=== PATIENT | female | born 2000 | race Two or more races ===

== ENCOUNTER 2025-05-28 09:58 | Outpatient (AMB) | payer MEDICAID, SELFPAY ==
[2025-05-28 10:11] VITALS: BP 106/66; PULSE 80; RESP 16; TEMP 36.6; O2SAT 97; BMI 28.6
--- NOTE | 2025-05-28 10:11 | OBCLNT_ITS ---
Vital Signs 05/28/25 10:11 Height 1.68 m Height Method Stated Weight 80.513 kg Weight Measurement Method Standing Scale BMI 28.6 BP 106/66 Blood Pressure Source Automatic Cuff Blood Pressure Location Left Upper Arm Position Sitting Respiration 16 Pulse 80 Pulse Source Monitor Temp 97.8 F Temp Source Oral Pulse Oximetry (%) 97 Oxygen Delivery Method Room Air Allergies/Home Meds Allergies & Medications Allergies No Known Allergies Allergy (Verified 06/26/25 13:39) Medication Reconciliation vit no.95-ferrous fumarate 28 mg-folic acid 800 mcg tablet ( Multivitamins) 1 tab PO QDAY 06/16/25 [History Confirmed 06/26/25] Intake Visit Data Collection New Patient or Established: New Patient (never been to [facility]) Reason for Visit:: OB INITIAL CARE Seen by Clinical Staff ONLY (RN/MA): No Research Contracts Supervisor Required: Yes Research Contracts Supervisor's name/title: MARK MICHELLE Do You Feel Safe at Home: Yes Authorities Contacted: N/A PCP or OBGYN visit in last 3 months: Yes Hx Now: Yes Are you currently on any form of Control: No Last menstrual period: 11/09/24 Pain Present Currently: No Pain Scale Used: Teran-Balderrama/Numerical Pain scale:: 0 Smoking Status Smoking Status: Never smoker Questionnaires Covid-19 Vaccine Questionnaire Has patient been vacinated for Covid-19 Have you been vacinated for Covid-19: Yes PHQ-9 PHQ-2 Over the last 2 weeks, how often have you been bothered by any of the following problems? 1. Little interest or pleasure in doing things: not at all 2. Feeling down, depressed, or hopeless: not at all Total score: 0 PHQ-9 3. Trouble falling or staying asleep, or sleeping too much: Not at all 4. Feeling tired or having little energy: Not at all 5. Poor appetite or overeating: Not at all 6. Feeling bad about yourself - or that you are a failure or have let yourself or your family down: Not at all 7. Trouble concentrating on things, such as reading the newspaper or watching television: Not at all 8. Moving or speaking so slowly that other people could have noticed? - Or the opposite - being so fidgety or restless that you have been moving around a lot more than usual: not at all 9. Thoughts that you would be better off or of hurting yourself in some way: Not at all Total score: 0 Source: Developed by Drs. Davis Washington, Haydee Porter, Dennis Gill and colleagues, with an educational omar from [employer]. Depression screen completed yes Social History Living Situation History Marital Status: Lives With: Family Housing: House Tobacco History Smoking Status: Never smoker Second Hand Smoke Exposure: No Alcohol History Alcohol Intake: Never Domestic Abuse History Do You Feel Safe at Home: Yes OB Initial Visit OB Flowsheet OB Flowsheet Initial Weight: Not Recorded Date -?-?-?-?-?-?-?-?-?-?-?-?- EGA Weight BP Alb Glu CTX Pres Fundal ht FHR Mov Dilation Station Effacement Hx Notes Visit Note 05/28/25 -?-?-?-?-?-?-?-?-?-?-?-?- 32w 5d 80.513 kg 106/66 absent 145 - with history of one prior section - Estimated due date: 07/18/2025 - Previous due to prolonged pre gnancy and cord entanglement - Current uncomplicated, heart rate 145 bpm (normal range) Delivery Options: - Discussed vaginal after () vs. repeat section - Informed patient our hospital does not allow - Advised to request referral for a [facility] or [facility] if desired Menstrual History Menstrual reliability: approximate (month known) Flow: normal Menstrual regularity: regular Monthly: Yes Age at menarche: 12 On control pills at conception: No Associated symptoms (LMP): Reports nausea OB History : 3 Para: 1 Hx Total # of Abortions (Spontaneous & Elective): 1 # of Living Children: 1 Delivery History 1st : Child's name: JOSHUA date: 07/09[birth year] sex: female Gestational age at delivery (weeks): 41 Delivery type: History of depression before or after : No Infection History & Risk Evaluation History of STDs: syphilis Patient or partner has history of Genital Herpes: No Genetic Screening & History Genetic Screening/Teratology Counseling - Includes patient, baby's father, or anyone in either family with: 1. Patient's age 35 years or older as of estimated date of delivery: No 2. Thalassemia (Turkmen, Bangladeshi, Mediterranean, or Background); MCV less than 80: No 3. Neural Tube Defect (Meningomyelocele, Spina Bifida, or Anencephaly): No 4. Congenital Heart Defect: No 5. Down Syndrome: No 6. Niko-Sachs (Ashkenazi Religion, Cajun, Hungarian East Timorese): No 7. Radha Disease (Ashkenazi Religion): No 8. Familial Dysautonomia (Ashkenazi Religion): No 9. Sickle Cell Disease or Trait (): No 10. Hemophilia or other blood disorders: No 11. Muscular Dystrophy: No 12. Cystic Fibrosis: No 13. Desoto's Chorea: No 14. Mental Retardation/Autism: No 15. Other inherited genetic or chromosomal disorder: No 16. Maternal Metabolic Disorder (EG,TYPE 1 Diabetes, PKU): No 17. Patient or baby's father had a child with defects not listed above: No 18. Recurrent loss or a stillbirth: No 19. Medications (including supplements, vitamins, herbs or otc drugs)/illicit/recreational drugs/alcohol since last menstrual period: No 20. Any other: No Infection History 1. Live with someone with TB or exposed to TB: No 2. Rash or viral illness since last menstrual period: No 3. Hepatitis B,C: No 4. History of STD: syphilis Other (see comments) Source: [employer] Review of Systems Gastrointestinal Gastrointestinal: Reports nausea Office Procedures OB Clinic LOC & Office Proc's Nursing/Assessment Patient Status: Initial/New Patient OB Clinic Nursing Assessment: Medication Reconciliation, Update PMH in EMR and Vital Signs OB Clinic Coordination of Care: Complex Care and Chronic Disease 1-5, Consent,records obtained, informed consent, Education Simp Pt/Fam, 1 Ins Authorization, Lab and Imaging orders, Results/Orders obtained and Staff clarify orders Special Needs: Heart tones New Patient Charge New Patient Point Assignment: [id number] New Patient Point Charge: LABORER LIVESTOCK Level 4 (9800-9919) Assessment & Plan Diagnosis / Problem List (1) Maternal care for low transverse scar from previous delivery: Status: Acute (2) Supervision of high risk , unspecified, third trimester: Status: Acute
== END 2025-05-28 10:34 | disposition home or self-care (01) ==
LOC: HODSOBC 09:58
PROVIDERS: Supervising Provider Obstetrics & Gynecology; Visit Provider Obstetrics & Gynecology
DX: O09.293 Supervision of pregnancy with other poor reproductive or obstetric history, third trimester (principal); O34.211 Maternal care for low transverse scar from previous cesarean delivery; Z3A.32 32 weeks gestation of pregnancy; Z87.59 Personal history of other complications of pregnancy, childbirth and the puerperium
CPT/HCPCS: 99204; G0463

== ENCOUNTER 2025-06-12 15:24 | Outpatient (AMB) | payer MEDICAID, SELFPAY ==
[2025-06-12 15:31] VITALS: BP 110/72; PULSE 85; RESP 16; TEMP 36.2; O2SAT 97; BMI 29.0
--- NOTE | 2025-06-12 15:31 | OBCLNT_ITS ---
Vital Signs 06/12/25 15:31 Height 1.68 m Height Method Stated Weight 81.873 kg Weight Measurement Method Standing Scale BMI 29.0 BP 110/72 Blood Pressure Source Automatic Cuff Blood Pressure Location Left Upper Arm Position Sitting Respiration 16 Pulse 85 Pulse Source Monitor Temp 97.1 F Temp Source Oral Pulse Oximetry (%) 97 Oxygen Delivery Method Room Air Allergies/Home Meds Allergies & Medications Allergies No Known Allergies Allergy (Verified 06/26/25 13:39) Medication Reconciliation vit no.95-ferrous fumarate 28 mg-folic acid 800 mcg tablet ( Multivitamins) 1 tab PO QDAY 06/16/25 [History Confirmed 06/26/25] Intake Visit Data Collection New Patient or Established: Established Patient (seen at [facility] within 3 years) Reason for Visit:: CARE Seen by Clinical Staff ONLY (RN/MA): No Director Of Leadership Development Required: Yes Director Of Leadership Development's name/title: MARK MICHELLE Do You Feel Safe at Home: Yes Authorities Contacted: N/A PCP or OBGYN visit in last 3 months: Yes Hx Now: Yes Are you currently on any form of Control: No Pain Present Currently: No Pain Scale Used: Teran-Balderrama/Numerical Pain scale:: 0 Smoking Status Smoking Status: Never smoker Questionnaires Covid-19 Vaccine Questionnaire Has patient been vacinated for Covid-19 Have you been vacinated for Covid-19: Yes PHQ-9 PHQ-2 Over the last 2 weeks, how often have you been bothered by any of the following problems? 1. Little interest or pleasure in doing things: not at all 2. Feeling down, depressed, or hopeless: not at all Total score: 0 PHQ-9 3. Trouble falling or staying asleep, or sleeping too much: Not at all 4. Feeling tired or having little energy: Not at all 5. Poor appetite or overeating: Not at all 6. Feeling bad about yourself - or that you are a failure or have let yourself or your family down: Not at all 7. Trouble concentrating on things, such as reading the newspaper or watching television: Not at all 8. Moving or speaking so slowly that other people could have noticed? - Or the opposite - being so fidgety or restless that you have been moving around a lot more than usual: not at all 9. Thoughts that you would be better off or of hurting yourself in some way: Not at all Total score: 0 Source: Developed by Drs. Davis Washington, Haydee Porter, Dennis Gill and colleagues, with an educational omar from [employer]. Depression screen completed yes Social History Living Situation History Lives With: Family Housing: House Tobacco History Smoking Status: Never smoker Second Hand Smoke Exposure: No Alcohol History Alcohol Intake: Never Domestic Abuse History Do You Feel Safe at Home: Yes Care OB Visit Log OB Flowsheet Initial Weight: Not Recorded Date -?-?-?-?-?-?-?-?-?-?-?-?- EGA Weight BP Alb Glu CTX Pres Fundal ht FHR Mov Dilation Station Effacement Hx Notes Visit Note 05/28/25 -?-?-?-?-?-?-?-?-?-?-?-?- 32w 5d 80.513 kg 106/66 absent 145 - with history of one prior ce sarean section - Estimated due date: 07/18/2025 - Previous due to prolonged pre gnancy and cord entanglement - Current uncomplicated, heart rate 145 bpm (normal range) [place] Options: - Discussed vaginal after () vs. repeat section - Informed patient our hospital does not allow - Advised to request referral for a [facility] or [facility] if desired 06/12/25 -?-?-?-?-?-?-?-?-?-?-?-?- 34w 6d 81.873 kg 110/72 occasional 152 at 35 weeks gestation presenting for routine visit. Patient reports feeling pressure, which is noted as normal. heart rate is 152 bpm, which is within normal limits. Group B Streptococcus (GBS) screening swab was performed. Patient has a history of difficulty with anesthesia during previous section, reporting higher than expected sensation. Planned section for July 01, one week prior to the July 08 due date. Plan - Group B Streptococcus (GBS) culture sw ab performed - Follow-up appointment scheduled for ne xt week - tentatively scheduled for , awaiting confirmation - Patient advised to mention previous an esthesia difficulties to anesthesiologist for appropriate management during upcoming PILI Calculator Estimated Delivery Date Method Current WG Current Estimate 07/18/25 LMP (Certain) 36w 6d Office Procedures OB Clinic LOC & Office Proc's Nursing/Assessment Patient Status: Established Patient OB Clinic Nursing Assessment: Medication Reconciliation, Update PMH in EMR and Vital Signs OB Clinic Coordination of Care: Complex Care and Chronic Disease 1-5, Consent,records obtained, informed consent, Education Simp Pt/Fam, Lab and Imaging orders, Results/Orders obtained and Staff clarify orders Special Needs: Heart tones Miscellaneous Interventions: Culture Specimen Collection Established Patient Charge Established Patient Point Assignment: 150 Established Patient Point Charge: EP Level 4 (120-155) Assessment & Plan Diagnosis / Problem List (1) Maternal care for low transverse scar from previous delivery: Status: Acute (2) Supervision of high risk , unspecified, third trimester: Status: Acute Plan Problem List - , 35 weeks gestation - Group B Streptococcus screening - History of section - 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 Patient reports feeling pressure, which is noted as normal. heart rate is 152 bpm, which is within normal limits. Group B Streptococcus (GBS) screening swab was performed. Patient has a history of difficulty with anesthesia during previous section, reporting higher than expected sensation. Planned section for July 01, one week prior to the July 08 due date. Plan - Group B Streptococcus (GBS) culture swab performed - Follow-up appointment scheduled for next week - tentatively scheduled for July 01, awaiting confirmation - Patient advised to mention previous anesthesia difficulties to anesthesiologist for appropriate management during upcoming 1. Progress Reviewed gestational age, growth, and heart rate. Planned frequent visits (every 2 weeks until 36 weeks, then weekly). 2. Instructed patient to monitor movements and report decreases immediately. 3. Testing Counseled on routine third-trimester labs per guidelines. Discussed potential need for ultrasound or monitoring based on risk factors. 4. Preeclampsia Precaution Educated on preeclampsia signs: severe headache, vision changes, right upper quadrant pain, sudden swelling. Advised urgent reporting of symptoms and discussed blood pressure monitoring if high risk. 5. Labor Precautions Reviewed labor signs: regular contractions, pelvic pressure, back pain, bleeding, or fluid leakage. Instructed to seek immediate care for these symptoms. 6. Lifestyle and Delivery Preparation Reinforced vitamins, nutrition, and safe activity. Discussed plan, pain management, and . Advised on labor preparation (e.g., hospital bag) and expectations. 7. Psychosocial Support Assessed emotional well-being and offered resources for mental health or parenting support.
== END 2025-06-12 15:47 | disposition home or self-care (01) ==
LOC: HODSOBC 15:24
PROVIDERS: Supervising Provider Obstetrics & Gynecology; Visit Provider Obstetrics & Gynecology
DX: O09.293 Supervision of pregnancy with other poor reproductive or obstetric history, third trimester (principal); O34.211 Maternal care for low transverse scar from previous cesarean delivery; Z3A.34 34 weeks gestation of pregnancy; Z36.85 Encounter for antenatal screening for Streptococcus B
CPT/HCPCS: 99214; G0463

== ENCOUNTER 2025-06-16 18:31 | Observation (INO) | payer MEDICAID, SELFPAY ==
[2025-06-16] VITALS (25 sets, daily range): BP systolic 110; BP diastolic 66; PULSE 73–102; RESP 16–98; TEMP 37.3; O2SAT 97–99; BMI 30.4
[2025-06-16 19:31] LABS: Collection Type, Urine Voided
[2025-06-16 19:51] LABS: Bacteria,Urine Rare; Bilirubin,Urine Negative (Negative); Blood,Urine Negative (Negative); Clarity,Urine Clear (Clear/Hazy); Color,Urine Lt-Yellow (Lt Yel-Yel); Glucose, Urine Negative (Negative); Ketones,Urine Negative (Negative); Leukocyte Esterase,Urine Negative (Negative); Nitrite,Urine Negative (Negative); PH,Urine 5.5 (5.0-7.0); Protein,Urine Negative (Neg - Trace); RBC,Urine 2 /hpf (0-3); Specific Gravity,Urine 1.020 (1.001-1.035); Squamous Epithelial Cell,Urine 4 /hpf (0-5); Urobilinogen,Urine Negative mg/dL (0.0-1.0); WBC,Urine 3 /hpf (0-5)
[2025-06-16] MEDS: TERBUTALINE SULF INJ 1 MG/ML VIAL 0.25 MG SC (20:00)
== END 2025-06-16 20:48 | disposition home or self-care (01) ==
PROVIDERS: Admitting Provider Obstetrics & Gynecology; PCP Family Medicine; Visit Provider Obstetrics & Gynecology
DX: O47.03 False labor before 37 completed weeks of gestation, third trimester (principal); Z3A.35 35 weeks gestation of pregnancy
CPT/HCPCS: 59025; 59899; 81001; 96372; J3105

== ENCOUNTER 2025-06-19 09:57 | Outpatient (AMB) | payer MEDICAID, SELFPAY ==
--- NOTE | 2025-06-19 10:18 | OBCLNT_ITS ---
Vital Signs 06/19/25 10:19 Height 1.6 m Height Method Measured Weight 82.214 kg Weight Measurement Method Standing Scale BMI 32.1 BP 107/71 Blood Pressure Source Automatic Cuff Blood Pressure Location Right Upper Arm Position Sitting Respiration 17 Pulse 80 Pulse Source Monitor Temp 97.8 F Temp Source Temporal Artery Scan Pulse Oximetry (%) 96 Oxygen Delivery Method Room Air Allergies/Home Meds Allergies & Medications Allergies No Known Allergies Allergy (Verified 06/26/25 13:39) Medication Reconciliation vit no.95-ferrous fumarate 28 mg-folic acid 800 mcg tablet ( Multivitamins) 1 tab PO QDAY 06/16/25 [History Confirmed 06/26/25] Intake Visit Data Collection New Patient or Established: Established Patient (seen at [facility] within 3 years) Reason for Visit:: OBC Consent obtained for Telemed Visit: No Seen by Clinical Staff ONLY (RN/MA): No Jingle Writer Required: Yes Jingle Writer's name/title: CARLOS ALONSO Do You Feel Safe at Home: Yes Authorities Contacted: N/A PCP or OBGYN visit in last 3 months: Yes Date of Last PCP or OBGYN visit: 06/16/25 Hx Now: Yes Are you currently on any form of Control: No Pain Present Currently: Yes Pain scale:: 2 Smoking Status Smoking Status: Never smoker Questionnaires Covid-19 Vaccine Questionnaire Has patient been vacinated for Covid-19 Have you been vacinated for Covid-19: Yes PHQ-9 PHQ-2 Over the last 2 weeks, how often have you been bothered by any of the following problems? 1. Little interest or pleasure in doing things: not at all PHQ-9 8. Moving or speaking so slowly that other people could have noticed? - Or the opposite - being so fidgety or restless that you have been moving around a lot more than usual: not at all Source: Developed by Drs. Davis Washington, Haydee Porter, Dennis Gill and colleagues, with an educational omar from [employer]. Social History Living Situation History Lives With: Family Housing: House Tobacco History Smoking Status: Never smoker Second Hand Smoke Exposure: No Alcohol History Alcohol Intake: Never Domestic Abuse History Do You Feel Safe at Home: Yes Care OB Visit Log OB Flowsheet Initial Weight: Not Recorded Date -?-?-?-?-?-?-?-?-?-?-?-?- EGA Weight BP Alb Glu CTX Pres Fundal ht FHR Mov Dilation Station Effacement Hx Notes Visit Note 05/28/25 -?-?-?-?-?-?-?-?-?-?-?-?- 32w 5d 80.513 kg 106/66 absent 145 - with history of one prior section - Estimated due date: 07/18/2025 - Previous due to prolonged pre gnancy and cord entanglement - Current uncomplicated, heart rate 145 bpm (normal range) Delivery Options: - Discussed vaginal after () vs. repeat section - Informed patient our hospital does not allow - Advised to request referral for a [facility] or [facility] if desired 06/12/25 -?-?-?-?-?-?-?-?-?-?-?-?- 34w 6d 81.873 kg 110/72 occasional 152 at 35 weeks gestation presenting for routine visit. Patient reports feeling pressure, which is noted as normal. heart rate is 152 bpm, which is within normal limits. Group B Streptococcus (GBS) screening swab was performed. Patient has a history of difficulty with anesthesia during previous section, reporting higher than expected sensation. Planned section for July 01, one week prior to the July 08 due date. Plan - Group B Streptococcus (GBS) culture sw ab performed - Follow-up appointment scheduled for ne xt week - tentatively scheduled for , awaiting confirmation - Patient advised to mention previous an esthesia difficulties to anesthesiologist for appropriate management during upcoming 06/19/25 -?-?-?-?-?-?-?-?-?-?-?-?- 35w 6d 82.214 kg 107/71 occasional 155 Patient is a 35-week and 6-day woman presenting for visit. Group B Streptococcus (GBS) screening was negative at the last appointment. A repeat section is scheduled for July 01. heart rate was noted to be 155 bpm, which is within normal range. Patient reports numbness in her first two toes following steroid administration, likely a temporary side effect. She also experienced drowsiness after receiving spinal anesthesia during a previous procedure. Cervix was closed on recent examination, indicating no signs of labor at this time. Plan - Scheduled repeat on - Return for final appointment next week - Patient to meet with anesthesia doctor 2 hours before operation to discuss concerns about previous anesthesia experience - If contractions last more than an hour , patient should come to the hospital - If cervix starts opening, delivery may occur before scheduled date PILI Calculator Estimated Delivery Date Method Current WG Current Estimate 07/18/25 LMP (Certain) 36w 6d Office Procedures OB Clinic LOC & Office Proc's Nursing/Assessment Patient Status: Established Patient OB Clinic Nursing Assessment: Medication Reconciliation, Update PMH in EMR and Vital Signs OB Clinic Coordination of Care: Complex Care and Chronic Disease 1-5, Consent,records obtained, informed consent, Education Simp Pt/Fam and Results/Orders obtained Special Needs: Heart tones Established Patient Charge Established Patient Point Assignment: 110 Established Patient Point Charge: EP Level 3 (80-115) Assessment & Plan Diagnosis / Problem List (1) Maternal care for low transverse scar from previous delivery: Status: Acute (2) Supervision of high risk , unspecified, third trimester: Status: Acute Plan Problem List - , 35 weeks and 6 days gestation - Scheduled repeat section Assessment Patient is a 35-week and 6-day woman presenting for visit. G roup B Streptococcus (GBS) screening was negative at the last appointment. A repeat section is scheduled for July 01. heart rate was noted to be 155 bpm, which is within normal range. Patient reports numbness in her first two toes following steroid administration, likely a temporary side effect. She also experienced drowsiness after receiving spinal anesthesia during a previous procedure. Cervix was closed on recent examination, indicating no signs of labor at this time. Plan - Scheduled repeat on July 01 - Return for final appointment next week - Patient to meet with anesthesia doctor 2 hours before operation to discuss concerns about previous anesthesia experience - If contractions last more than an hour, patient should come to the hospital - If cervix starts opening, delivery may occur before scheduled date 1. Progress Reviewed gestational age, growth, and heart rate. Planned frequent visits (every 2 weeks until 36 weeks, then weekly). 2. Instructed patient to monitor movements and report decreases immediately. 3. Testing Counseled on routine third-trimester labs per guidelines. Discussed potential need for ultrasound or monitoring based on risk factors. 4. Preeclampsia Precaution Educated on preeclampsia signs: severe headache, vision changes, right upper quadrant pain, sudden swelling. Advised urgent reporting of symptoms and discussed blood pressure monitoring if high risk. 5. Labor Precautions Reviewed labor signs: regular contractions, pelvic pressure, back pain, bleeding, or fluid leakage. Instructed to seek immediate care for these symptoms. 6. Lifestyle and Delivery Preparation Reinforced vitamins, nutrition, and safe activity. Discussed plan, pain management, and . Advised on labor preparation (e.g., hospital bag) and expectations. 7. Psychosocial Support Assessed emotional well-being and offered resources for mental health or parenting support.
[2025-06-19 10:19] VITALS: BP 107/71; PULSE 80; RESP 17; TEMP 36.6; O2SAT 96; BMI 32.1
== END 2025-06-19 10:36 | disposition home or self-care (01) ==
PROVIDERS: Supervising Provider Obstetrics & Gynecology; Visit Provider Obstetrics & Gynecology
DX: O09.293 Supervision of pregnancy with other poor reproductive or obstetric history, third trimester (principal); O34.211 Maternal care for low transverse scar from previous cesarean delivery; Z3A.35 35 weeks gestation of pregnancy; Z87.59 Personal history of other complications of pregnancy, childbirth and the puerperium
CPT/HCPCS: 99213; G0463

== ENCOUNTER 2025-06-26 13:30 | Outpatient (AMB) | payer MEDICAID, SELFPAY ==
[2025-06-26 13:38] VITALS: BP 113/71; PULSE 80; RESP 16; TEMP 36.5; O2SAT 97; BMI 32.5
--- NOTE | 2025-06-26 13:38 | OBCLNT_ITS ---
Vital Signs 06/26/25 13:38 Height 1.6 m Height Method Stated Weight 83.234 kg Weight Measurement Method Standing Scale BMI 32.5 BP 113/71 Blood Pressure Source Automatic Cuff Blood Pressure Location Left Upper Arm Position Sitting Respiration 16 Pulse 80 Pulse Source Monitor Temp 97.7 F Temp Source Oral Pulse Oximetry (%) 97 Oxygen Delivery Method Room Air Allergies/Home Meds Allergies & Medications Allergies No Known Allergies Allergy (Verified 06/26/25 13:39) Medication Reconciliation vit no.95-ferrous fumarate 28 mg-folic acid 800 mcg tablet ( Multivitamins) 1 tab PO QDAY 06/16/25 [History Confirmed 06/26/25] Intake Visit Data Collection New Patient or Established: Established Patient (seen at [facility] within 3 years) Reason for Visit:: CARE Seen by Clinical Staff ONLY (RN/MA): No Household Refrigerator Mechanic Required: No Do You Feel Safe at Home: Yes Authorities Contacted: N/A PCP or OBGYN visit in last 3 months: Yes Hx Now: Yes Are you currently on any form of Control: No Pain Present Currently: No Pain Scale Used: Teran-Balderrama/Numerical Pain scale:: 0 Smoking Status Smoking Status: Never smoker Questionnaires Covid-19 Vaccine Questionnaire Has patient been vacinated for Covid-19 Have you been vacinated for Covid-19: Yes PHQ-9 PHQ-2 Over the last 2 weeks, how often have you been bothered by any of the following problems? 1. Little interest or pleasure in doing things: not at all 2. Feeling down, depressed, or hopeless: not at all Total score: 0 PHQ-9 3. Trouble falling or staying asleep, or sleeping too much: Not at all 4. Feeling tired or having little energy: Not at all 5. Poor appetite or overeating: Not at all 6. Feeling bad about yourself - or that you are a failure or have let yourself or your family down: Not at all 7. Trouble concentrating on things, such as reading the newspaper or watching television: Not at all 8. Moving or speaking so slowly that other people could have noticed? - Or the opposite - being so fidgety or restless that you have been moving around a lot more than usual: not at all 9. Thoughts that you would be better off or of hurting yourself in some way : Not at all Total score: 0 Source: Developed by Drs. Davis Washington, Haydee Porter, Dennis Gill and colleagues, with an educational omar from [employer]. Depression screen completed yes Social History Living Situation History Lives With: Family Housing: House Tobacco History Smoking Status: Never smoker Second Hand Smoke Exposure: No Alcohol History Alcohol Intake: Never Domestic Abuse History Do You Feel Safe at Home: Yes Care OB Visit Log OB Flowsheet Initial Weight: Not Recorded Date -?-?-?-?-?-?-?-?-?-?-?-?- EGA Weight BP Alb Glu CTX Pres Fundal ht FHR Mov Dilation Station Effacement Hx Notes Visit Note 05/28/25 -?-?-?-?-?-?-?-?-?-?-?-?- 32w 5d 80.513 kg 106/66 absent 145 - with history of one prior section - Estimated due date: 07/18/2025 - Previous due to prolonged pre gnancy and cord entanglement - Current uncomplicated, heart rate 145 bpm (normal range) Delivery Options: - Discussed vaginal after () vs. repeat section - Informed patient our hospital does not allow - Advised to request referral for a [facility] or [facility] if desired 06/12/25 -?-?-?-?-?-?-?-?-?-?-?-?- 34w 6d 81.873 kg 110/72 occasional 152 at 35 weeks gestation presenting for routine visit. Patient reports feeling pressure, which is noted as normal. heart rate is 152 bpm, which is within normal limits. Group B Streptococcus (GBS) screening swab was performed. Patient has a history of difficulty with anesthesia during previous section, reporting higher than expected sensation. Planned section for July 01, one week prior to the July 08 due date. Plan - Group B Streptococcus (GBS) culture sw ab performed - Follow-up appointment scheduled for ne xt week - tentatively scheduled for Se pt, awaiting confirmation - Patient advised to mention previous an esthesia difficulties to anesthesiologist for appropriate management during upcoming 06/19/25 -?-?-?-?-?-?-?-?-?-?-?-?- 35w 6d 82.214 kg 107/71 occasional 155 Patient is a 35-week and 6-day woman presenting for visit. Group B Streptococcus (GBS) screening was negative at the last appointment. A repeat section is scheduled for July 01. heart rate was noted to be 155 bpm, which is within normal range. Patient reports numbness in her first two toes following steroid administration, likely a temporary side effect. She also experienced drowsiness after receiving spinal anesthesia during a previous procedure. Cervix was closed on recent examination, indicating no signs of labor at this time. Plan - Scheduled repeat on - Return for final appointment next week - Patient to meet with anesthesia doctor 2 hours before operation to discuss concerns about previous anesthesia experience - If contractions last more than an hour , patient should come to the hospital - If cervix starts opening, delivery may occur before scheduled date 06/26/25 -?-?-?-?-?-?-?-?-?-?-?-?- 36w 6d 83.234 kg 113/71 occasional 37 145 +FM No L OF, No VB Scheduled CS 07/04 unknown scar in [place] PILI Calculator Estimated Delivery Date Method Current WG Current Estimate 07/18/25 LMP (Certain) 37w 3d Other Estimates 07/18/25 Ultrasound #1 37w 3d Expected Delivery Route/Plan 24 y/o Previous CS in [place] no Op report 3 years ago for distress Transfer of care Dr Celestin 27 weeks Specific Issue/Plans PNC labs under [facility] 06/15: PNC Documentation from office: B+/Ab negative/RI/RPR NR/HepBSag-/HIV-/CG-/Chlam-/ AFP-/CF testing- Notes Visit Date: 06/26/25 Last Updated by: Pat Bledsoe (OB Clinic)MD Pt is a Occitan-Speaking pt who presents with her and 3 year old for a return OB visit. She started care with Dr Celestin. She had a CS in [place], unknown scar for distress. The interview and exam is conducted with my medical clerk, Maya present. Office Procedures OB Clinic LOC & Office Proc's Nursing/Assessment Patient Status: Established Patient OB Clinic Nursing Assessment: Medication Reconciliation, Update PMH in EMR and Vital Signs OB Clinic Coordination of Care: Complex Care and Chronic Disease 1-5, Consent,records obtained, informed consent, Education Simp Pt/Fam, Lab and Imaging orders, Results/Orders obtained and Staff clarify orders Special Needs: Heart tones Established Patient Charge Established Patient Point Assignment: 135 Established Patient Point Charge: EP Level 4 (120-155) Assessment & Plan Diagnosis / Problem List (1) Maternal care for low transverse scar from previous delivery: Status: Acute (2) : Status: Acute Qualifiers: Weeks of gestation: 37 weeks Qualified Code(s): Z3A.37 - 37 weeks gestation of Plan: Sceduled repeat CS at 38 weeks due to unknown scar in [place]. Verbally consented for procedure, will consent day of surgery with an offical scheduling clerk. All questions were answered.
== END 2025-06-26 14:21 | disposition home or self-care (01) ==
PROVIDERS: Supervising Provider Obstetrics & Gynecology; Visit Provider Obstetrics & Gynecology
DX: O09.293 Supervision of pregnancy with other poor reproductive or obstetric history, third trimester (principal); O34.211 Maternal care for low transverse scar from previous cesarean delivery; Z3A.36 36 weeks gestation of pregnancy
CPT/HCPCS: 99214; G0463

== ENCOUNTER 2025-07-04 05:30 | Inpatient (IN) | payer MEDICAID, SELFPAY ==
[2025-07-04] VITALS (14 sets, daily range): BP systolic 93–114; BP diastolic 55–76; PULSE 50–97; RESP 12–20; TEMP 36.5–36.9; O2SAT 97–99; BMI 30.2
[2025-07-04 06:27] LABS: Basophils # (Auto) 0.0 Thou/mm3 (0.0-0.2); Basophils % (Auto) 0 % (0-2.5); Eosinophils # (Auto) 0.1 Thou/mm3 (0.0-0.5); Eosinophils % (Auto) 0 % (0-10); Hematocrit 36.6 % (36.0-46.0); Hemoglobin 12.4 g/dL (12.0-16.0); Immature Granulocytes Auto 0.05 Thou/mm3 (0.00-0.00); Lymphocytes # (Auto) 2.6 Thou/mm3 (1.0-4.8); Lymphocytes % (Auto) 21 % (10-50); Mean Corpuscular HGB Conc 33.9 g/dl (31.0-37.0); Mean Corpuscular Hemoglobin 29.0 pg (25.0-35.0); Mean Corpuscular Volume 86 fL (80-100); Monocytes # (Auto) 0.9 Thou/mm3 (0.0-0.8); Monocytes % (Auto) 8 % (0-12); Neutrophils # (Auto) 8.5 Thou/mm3 (1.8-7.7); Neutrophils % (Auto) 70 % (37-80); Nucleated Red Blood Cell # 0.00 Thou/mm3 (0.00-0.00); Nucleated Red Blood Cell % 0 /100 WBC (0); Platelet Count 203 Thou/mm3 (140-440); RDW Standard Deviation 41.8 fL (36.4-46.3); Red Blood Count 4.27 Miln/mm3 (4.00-5.20); White Blood Count 12.2 Thou/mm3 (3.6-11.0)
[2025-07-04 07:02] LABS: Syphilis Nonreactive (Nonreactive)
[2025-07-04] MEDS: ONDANSETRON INJ 2 MG/ML INJ 2 ML 4 MG IVP (11:54)
[2025-07-04] MEDS: OXYTOCIN in NS 20 units 20 UNIT/1,000 ML BAG 125 UNIT IV ×2 (14:01→22:29)
[2025-07-04] MEDS: KETOROLAC INJ 30 MG/ML VIAL IVP (15:46)
[2025-07-04 19:42] LABS: Basophils # (Auto) 0.0 Thou/mm3 (0.0-0.2); Basophils % (Auto) 0 % (0-2.5); Eosinophils # (Auto) 0.0 Thou/mm3 (0.0-0.5); Eosinophils % (Auto) 0 % (0-10); Hematocrit 31.1 % (36.0-46.0); Hemoglobin 10.4 g/dL (12.0-16.0); Immature Granulocytes Auto 0.06 Thou/mm3 (0.00-0.00); Lymphocytes # (Auto) 2.4 Thou/mm3 (1.0-4.8); Lymphocytes % (Auto) 17 % (10-50); Mean Corpuscular HGB Conc 33.4 g/dl (31.0-37.0); Mean Corpuscular Hemoglobin 28.8 pg (25.0-35.0); Mean Corpuscular Volume 86 fL (80-100); Monocytes # (Auto) 1.0 Thou/mm3 (0.0-0.8); Monocytes % (Auto) 7 % (0-12); Neutrophils # (Auto) 11.0 Thou/mm3 (1.8-7.7); Neutrophils % (Auto) 76 % (37-80); Nucleated Red Blood Cell # 0.00 Thou/mm3 (0.00-0.00); Nucleated Red Blood Cell % 0 /100 WBC (0); Platelet Count 160 Thou/mm3 (140-440); RDW Standard Deviation 41.5 fL (36.4-46.3); Red Blood Count 3.61 Miln/mm3 (4.00-5.20); White Blood Count 14.5 Thou/mm3 (3.6-11.0)
--- NOTE | 2025-07-04 19:50 | PD.LDHP ---
Documentation for date of: 07/04/25 OB Labor/Induct. HPI History of Present Illness Chief complaint: The patient presents for scheduled repeat : 3 Para: 1 Term pregnancies: 1 Living children: 1 History of Abortions: Spontaneous and Elective: 1 History of sections: Yes (C/S one in [place], unknown scar) History of : No Date of last menstrual period: 10/11/24 PILI: 07/18/25 Gestational Age (weeks): 38 Gestational Age (days): 0 Gestational age based on last menstrual period: 38 History of present illness: Patient is a 24-year-old -0-0-1 with care started at Dr Celestin transferred to the [facility] OB clinic. She presents for a scheduled elective repeat at 38 weeks secondary to unknown scar. EDC 07/18/2025. History of Present Dating criteria: LMP confirmed by 1st trimester US Adequate Care: Yes Ultrasounds: normal mid trimester US Obstetrical complications: other (Prior x 1 in [place], unknown scar) Medical complications: none Labs Maternal Blood Type: O Pos Labs: Positive: Rubella Titre, Negative: RPR, Hepatitis B, HIV, Chlamydia and Gonorrhea and Unknown: Herpes Type 1, Herpes Type 2, Group Beta Strep and Covid-19 Past Medical History Surgical History SURGICAL: Positive Section (C/S one in [place], unknown scar) Past Medical History Comments PMH COMMENT: Patient has no significant past medical history including no diabetes hypertension obesity or asthma. Her only past surgery is her performed in [place]. Meds Home Medications and Allergies Home Medications ?Medication ?Instructions ?Recorded ?Confirmed ?Type vit no.95-ferrous 1 tab PO QDAY 06/16/25 07/04/25 History fumarate 28 mg-folic acid 800 mcg tablet ( Multivitamins) Allergies Allergy/AdvReac Type Severity Reaction Status Date / Time No Known Allergies Allergy Verified 07/04/25 05:53 OB Exam Physical Exam Vital signs: Temp Pulse Resp BP Pulse Ox O2 Del Method 98.3 F 67 17 99/58 L 98 Room Air 07/04/25 19:16 07/04/25 19:16 07/04/25 19:16 07/04/25 19:16 07/04/25 19:16 07/04/25 19:16 Constitutional Constitutional: no acute distress Routine Cardiovascular Exam Cardiovascular: Present RRR Routine Abdominal Exam Abdominal: Present soft and normoactive bowel sounds Detailed Labor and Delivery Exam monitor accelerations: 15x15 monitor decelerations: None skilled nursing variability: Moderate (11-25) Contraction frequency (min): Irregular Contraction intensity: Mild Routine Extremities Exam Extremities: Present full ROM Routine Skin Exam Skin: Present intact, dry and warm Routine Psychiatric Exam Psychiatric: Present normal affect and normal thought process OB Results Labs 07/04/25 19:18 Labs: Short CBC 07/04/25 07/04/25 Range/Units 06:00 19:18 WBC 12.2 H 14.5 H (3.6-11.0) Thou/mm3 Hgb 12.4 10.4 L D (12.0-16.0) g/dL Hct 36.6 31.1 L (36.0-46.0) % Plt Count 203 160 D (140-440) Thou/mm3 OB Assessment & Plan Assessment and Plan (1) Maternal care for low transverse scar from previous delivery: Status: Acute Assessment and plan: Patient is consented for repeat low-transverse section. The risks of the procedure were discussed including the risk of bleeding, infection, blood transfusion, damage to bowel bladder blood vessels other organs, prolonged hospital stay and further surgery should any of the above occur. All questions were answered all consents were signed. (2) Supervision of high risk , unspecified, third trimester: Status: Acute (3) : Status: Acute (3) Qualifiers: Weeks of gestation: 37 weeks Qualified Code(s): Z3A.37 - 37 weeks gestation of
--- NOTE | 2025-07-04 19:55 | PD.LDDELS ---
Data (Huggins) Data Hx Section: Yes (C/S one in [place], unknown scar) Maternal Blood Type: B Pos Rubella Titre: Positive RPR: Non-reactive Labs: Negative: RPR, Hepatitis B, HIV, Chlamydia, Gonorrhea and Group Beta Strep : 3 Term: 1 Livin Abortions: Spontaneous & Theraputic: 1 Delivery Data (Huggins) Labor Data Induction/Augmentation Agent: None ROM date: 07/04/25 ROM time: 12:31 Amniotic membrane rupture type: Artificial Amniotic fluid description: Clear Delivery Data EDC: 07/18/25 EDC calculated by:: LMP/early US confirmation Date of arrival to unit: 07/04/25 Time of arrival to unit: 06:00 Onset of labor date: 07/04/25 Onset of labor time: 12:31 Complete dilation date: 07/04/25 Complete dilation time: 12:31 delivery date: 07/04/25 Vernon delivery time: 12:31 Gestational age (weeks): 38 Gestational age (days): 0 Placenta delivery date: 07/04/25 Placenta delivery time: 12:32 Stage 1 total time: Labor - Stage 1 Duration 0 minutes Delivered by: Boken Delivery nurse: [email or web address] Neworn nurse: [email or web address] Commercial Lending Vice President at delivery: No Support person(s) at delivery: FOB Delivery Method Delivery method: Low Transverse Presentation: Vertex position: OA Anesthesia Type Anesthesia Type: Spinal Delivery Room Medications Delivery room medications: Pitocin 20 u IV Placenta Placenta delivery description: Manual Removal Cord blood sent to lab: Yes cord blood collection: Cord Blood Type Episiotomy Episiotomy description: None EBL Estimated blood loss (ml): 350 Umbilical Cord cord description: 3 Vessels, Nuchal Cord and Loose Additional Procedures See op report for further details Complications Complications: none Vernon Data (Huggins) Vernon Data order: 1 's gender: Female Identification band number: [id number] weight (gms): 3260 g Weight (pounds): 7 lbs and 3.0 ozs length: 48.9 cm 1 minute: 8 5 minutes: 9
--- NOTE | 2025-07-04 19:57 | ESOP_ITS ---
Operative Note - ACCOUNTANT CLERK Procedure Date of procedure: 07/04/25 Procedure Performed: Repeat low-transverse section Indication: The patient is a 24-year-old -0-0-1 with history of a x 1 in [place]. She has an unknown scar as we are unable to obtain the op report. She was scheduled for an elective repeat section at 38 weeks. She started her care with Dr. Celestin and transferred to the [facility] OB clinic at approximately 33 weeks of . Pre-Op diagnosis: 1. IUP at 38 weeks 2. Previous x 1, unknown scar performed in [place]. Post-Op diagnosis: Same Anesthesia type: Spinal Procedure description: After obtaining informed consent, the patient was brought to back to the operating room and spinal anesthesia administered. She was then prepped and draped in a dorsal supine position with a leftward tilt in a normal sterile fashion. A Callahan catheter was inserted into the patient's bladder. The patient was given 2 g of Ancef by anesthesia. A Pfannenstiel skin incision was made with a scalpel through the patient's prior scar and carried down to the underlying fascia. The fascia was incised in the midline, and the fascial incision extended laterally using Haque scissors. The superior aspect of the fascia was grasped with Gino clamps and the underlying rectus muscles dissected off using blunt and sharp dissection. This was repeated in the inferior aspect the incision. The rectus muscle were in the midline and the peritoneum was picked up and entered sharply wih Metzenbaums. This was extended superiorly and inferiorly with good visual visualization of the patient's bladder. The bladder blade was inserted and the uterus was incised in a low transverse fashion with the scalpel above the bladder reflection. The uterine incision was extended laterally using blunt dissection with the surgeon's fingers. The bag segundo was ruptured and clear fluid was noted. The bladder blade was removed, and the was delivered atraumatically. The cord was clamped and cut, and the was handed off to the waiting pediatric staff. Cord blood was sent and cord gases were saved. The placenta was then manually removed and the uterus was exteriorized and cleared of all clots and debris. The uterine incision was repaired using 0 Monocryl in a running locked fashion. Excellent hemostasis was noted. The uterus was then returned to the patient's abdominal cavity and copious irrigation carried out with warm normal saline. The uterine incision was reexamined and noted to be hemostatic. After ensuring the rectus muscles were hemostatic, these were reapproximated in the midline using a running suture of 0 Monocryl. The fascia was closed with 0 Vicryl in a running fashion. The subcutaneous tissues were irrigated and found to be hemostatic. These were reapproximated using a running suture of 3-0 plain. The skin was closed with a subcuticular suture of 4-0 Monocryl. The patient tolerated the procedure well, sponge, lap, instrument, and needle counts were correct x 2. Patient went to the recovery area awake and in stable condition. Fluids: crystalloid Fluid amount (mL): 1,500 Urine output (mL): 50 Specimen: none Implants: none Estimated blood loss (ml): 350 Findings: Liveborn female in the MATTHEW presentation with a loose nuchal cord x 1. No meconium. Apgars were 8 and 9. Weight was 7 pounds 3 ounces. Placenta was complete and grossly normal. Tubes uterus ovaries appeared grossly normal. Of note there is very little scar tissue present the patient's abdomen. Also of note she had a thick lower uterine segment. Complications: none Surgical staff Operation Date: 07/04/25 12:15 Case Staff INCLINED RAILWAY OPERATOR: Philip Alexander RN First Assistant: Jazmin Robb Diagnosis Discharge Diagnosis (1) : Status: Acute (2) Maternal care for low transverse scar from previous delivery: Status: Acute (3) Supervision of high risk , unspecified, third trimester: Status: Acute Problem List Completed Was Problem List Reviewed/Reconciled?: Yes (1) Qualifiers: Weeks of gestation: 37 weeks Qualified Code(s): Z3A.37 - 37 weeks gestation of
[2025-07-04] MEDS: SIMETHICONE 80 MG CHEW PO (22:30)
[2025-07-05] MEDS: KETOROLAC INJ 30 MG/ML VIAL IVP (00:53)
[2025-07-05 00:56] VITALS: BP 108/71; PULSE 61; RESP 16; TEMP 37.1; O2SAT 97
[2025-07-05 03:56] VITALS: BP 95/67; PULSE 66; RESP 16; TEMP 36.6; O2SAT 97
[2025-07-05] MEDS: RINGERS LACTATED 1000 ML 1,000 ML 100 ML IV (06:09)
--- NOTE | 2025-07-05 07:35 | PD.LDPPPRG ---
Subjective Subjective Interval history: Delivery type: Patient doing well this morning. No acute complaints. Ambulating, tolerating p.o. and voiding without difficulty. HTN/Pre-Eclampsia screen: No chest pain, shortness of breath, headache, visual changes, epigastric or right upper quadrant pain. Breast-feeding, lochia diminishing. Bowel: Flatus+/ BM+ Exam Vital Signs Temp Pulse Resp BP Pulse Ox O2 Del Method 97.8 F 66 16 95/67 97 Room Air 07/05/25 03:56 07/05/25 03:56 07/05/25 03:56 07/05/25 03:56 07/05/25 03:56 07/05/25 03:56 Constitutional Constitutional: no acute distress Routine HEENT Exam Head: Present normocephalic and atraumatic Eye: Present EOMI and PERRL ENT: Present mucous membranes moist Routine Neck Exam Neck: Present supple and trachea midline Routine Respiratory Exam Respiratory: Present chest non-tender, lungs clear, normal breath sounds and no resp distress Routine Cardiovascular Exam Cardiovascular: Present RRR Routine Abdominal Exam Abdominal: Present soft and normoactive bowel sounds Routine Extremities Exam Extremities: Present full ROM Routine Skin Exam Skin: Present intact, dry and warm Routine Neurological Exam Neurological: Present alert, oriented X3 and CN II-XII intact Routine Psychiatric Exam Psychiatric: Present normal affect and normal thought process Objective Labs 07/04/25 19:18 Labs: Laboratory Results - last 24 hr 07/04/25 07/04/25 06:00 19:18 WBC 14.5 H RBC 3.61 L Hgb 10.4 L D Hct 31.1 L MCV 86 MCH 28.8 MCHC 33.4 RDW Std Deviation 41.5 Plt Count 160 D Neut % (Auto) 76 Lymph % (Auto) 17 Keith % (Auto) 7 Eos % (Auto) 0 Baso % (Auto) 0 Neut # (Auto) 11.0 H Lymph # (Auto) 2.4 Keith # (Auto) 1.0 H Eos # (Auto) 0.0 Baso # (Auto) 0.0 Immature Gran # (Auto) 0.06 H Absolute Nucleated RBC 0.00 Immature Gran % 0 Nucleated RBC % 0 Blood Type B Positive Antibody Screen NEGATIVE Assessment & Plan Problem List (1) : Status: Acute (2) Maternal care for low transverse scar from previous delivery: Status: Acute Assessment and plan: 1. Continue routine /post-op care 2. Labs reviewed, cbc appropriate 3. Remove dressing/Callahan 4. Encourage to ambulate, shower 5. Encourage PO intake, breast feeding (3) Supervision of high risk , unspecified, third trimester: Status: Acute Time Spent With Patient Time: Total time spent is greater than 50% in coordination of care (as documented) at patient's floor/unit and/or counseling patient:
[2025-07-05 08:15] VITALS: BP 101/63; PULSE 76; RESP 18; TEMP 36.7; O2SAT 98
[2025-07-05] MEDS: IBUPROFEN TAB 400 MG TABLET 800 MG PO ×2 (08:46→22:29)
[2025-07-05] MEDS: DOCUSATE SOD 100 MG CAPSULE PO (08:46)
[2025-07-05 12:00] VITALS: BP 104/69; PULSE 68; RESP 17; TEMP 36.9; O2SAT 95
[2025-07-05 16:00] VITALS: BP 113/70; PULSE 72; RESP 14; TEMP 36.8; O2SAT 97
[2025-07-05] MEDS: HYDROcodone/APAP 5/325 TABLET 1 TAB PO (17:16)
[2025-07-05 20:00] VITALS: BP 103/66; PULSE 74; RESP 18; TEMP 36.8; O2SAT 97
[2025-07-06 04:00] VITALS: BP 102/65; PULSE 58; RESP 16; TEMP 36.5; O2SAT 97
[2025-07-06] MEDS: DOCUSATE SOD 100 MG CAPSULE PO (08:06)
--- NOTE | 2025-07-06 09:16 | ESDS_ITS ---
DS: Providers Provider Date of admission: 07/04/25 05:30 Primary care physician: Eze Rosario Admitting Provider: Pat Bledsoe MD (OB Clinic) Attending Provider on Admission: Jenae Shine MD Consults: 07/04/25 16:12 Referral Routine Comment: Attending Provider on DC: Jenae Shine MD Discharging Provider: Jenae Shine MD DS: Diagnosis Discharge Diagnosis (1) delivery delivered: Status: Acute (2) Maternal care for low transverse scar from previous delivery: Status: Acute (3) Supervision of high risk , unspecified, third trimester: Status: Acute Problem List Completed Was Problem List Reviewed/Reconciled?: Yes Summary/Hosp Course Brief History: Patient is a 24-year-old -0-0-1 with care started at Dr Celestin transferred to the [facility] OB clinic. She presents for a scheduled elective repeat at 38 weeks secondary to unknown scar. EDC 07/18/2025. --- Doing well on POD 2 s/p uncomplicated section. She has had an uncomplicated post-operative course, meeting all milestones and feels ready for discharge home. She is ambulating without lightheadedness, tolerating regular diet no n/v, spontaneously voiding without issue. She has no chest pain or shortness of breath. No fevers or chills. Pain well controlled. Vitals normal, benign exam. Hemodynamically stable with no evidence of infection. Post-op Hgb 10.4 from 12.4. Peripartum Data Delivery Method: Low Transverse Episiotomy Description: None Procedures: Procedures Operation Date: 07/04/25 12:15 Actual Procedure Side Surgeon p in OB Pat Bledsoe (OB Clinic)MD Status at Discharge Functional status at discharge: independent ambulation Overall status at discharge: patient is back to baseline Time Spent with Patient Time attestation: Total time spent providing and/or coordinating discharge services: Exam Vital Signs Temp Pulse Resp BP Pulse Ox O2 Del Method 97.7 F 58 L 16 102/65 97 Room Air 07/06/25 04:00 07/06/25 04:00 07/06/25 04:00 07/06/25 04:00 07/06/25 04:00 07/06/25 04:00 Narrative Exam General: well developed, well nourished, no acute distress, conversant Cardiac: normal heart rate Lungs: breathing without distress Abdomen: soft, post-gravid, non-tender, no rebound or guarding, pfannenstiel incision covered by dry/clean/intact prineo bandage. Incision well reapproxima osvaldo. No erythema, drainage or induration. Fundus firm at u-2cm. Extremities: no pain with palpation of calves, trace edema of BLE Discharge Plan Plan Patient Disposition: HOME (Self Care) Patient condition on transfer: Stable Prescriptions/Referrals Prescriptions/Med Rec: New hydrocodone-acetaminophen 5-325 mg Tablet 1 tab PO Q6H MDD 4 tablets PRN (Reason: Patient rated pain 7 to 8) 7 Days Qty: 10 0RF docusate sodium 100 mg Capsule 100 mg PO BID 10 Days Qty: 20 0RF ibuprofen 800 mg tablet 800 mg PO Q8HR PRN (Reason: Pain Scale 4-6 (Moderate) 10 Days Qty: 30 0RF Continued PNV no.95-ferrous fumarate-FA [ Multivitamins] 28 mg iron- 800 mcg tablet 1 tab PO QDAY Referrals: Eze Gupta [Primary Care Provider] Patient/Caregiver Discharge Instructions Discharge Activity: activity as tolerated and other Other Discharge Activity Instructions:: vaginal rest and no heavy lifting more than 10 pounds for 6 weeks. keep incision clean and dry, do not submerge. no driving while taking narcotic. Other Discharge Diet Instructions: regular diet Education Materials: How to Breastfeed, Understanding Depression, C Section Dc, : Latch On Steps Print Language: Romansh Activity Restrictions/Additional Instructions: follow up with Dr. Bledsoe in 1 to 2 weeks for incision check, call clinic for appointment Stand Alone Forms: Marine Award Info., Patient Portal Info Letter Discharge Order Discharge Orders: Discharge (Routine); Ordered 07/06/25 Ordered By: Jenae Shine Planned Discharge Date 07/06/25
[2025-07-06 09:29] VITALS: BP 106/71; PULSE 83; RESP 16; TEMP 36.3; O2SAT 98
[2025-07-06] MEDS: HYDROcodone/APAP 5/325 TABLET 1 TAB PO (10:13)
[2025-07-06 13:00] VITALS: BP 116/70; PULSE 78; RESP 16; TEMP 36.6; O2SAT 99
== END 2025-07-06 15:22 | disposition home or self-care (01) | DRG 540 ==
LOC: S4SX 10:10 → S4NX 12:02
PROVIDERS: Admitting Provider Obstetrics & Gynecology; PCP Physician Assistant; Visit Provider Obstetrics & Gynecology
PROC: 10D00Z1 Extraction of Products of Conception, Low, Open Approach (ICD-10-PCS; CPT 59514; principal; 2025-07-04 12:00)
DX: O34.211 Maternal care for low transverse scar from previous cesarean delivery (principal); O69.81X0 Labor and delivery complicated by cord around neck, without compression, not applicable or unspecified; Z37.0 Single live birth; Z3A.38 38 weeks gestation of pregnancy
CPT/HCPCS: 36415; 82803; 85025; 86780; 86850; 86900; 86901; A4217; A4314; A4649; J0689; J1200; J1885; J2274; J2371; J2405; J2590; J3010; J3490; J7120; A9270; J2270

== ENCOUNTER 2025-07-18 11:26 | Outpatient (AMB) | payer MEDICAID, SELFPAY ==
[2025-07-18 11:32] VITALS: BP 166/78; PULSE 97; RESP 16; TEMP 36.6; O2SAT 98; BMI 27.7
--- NOTE | 2025-07-18 11:32 | AMBOBPPN_ITS ---
Vital Signs 07/18/25 11:32 Height 1.65 m Height Method Stated Weight 75.523 kg Weight Measurement Method Standing Scale BMI 27.7 BP 166/78 H Blood Pressure Source Automatic Cuff Blood Pressure Location Right Lower Arm Position Sitting Respiration 16 Pulse 97 Pulse Source Monitor Temp 98 F Temp Source Oral Pulse Oximetry (%) 98 Oxygen Delivery Method Room Air Allergies/Home Meds Allergies & Medications Allergies No Known Allergies Allergy (Verified 07/18/25 11:33) Medication Reconciliation vit no.95-ferrous fumarate 28 mg-folic acid 800 mcg tablet ( Multivitamins) 1 tab PO QDAY 06/16/25 [History Confirmed 07/18/25] Intake Visit Data Collection New Patient or Established: Established Patient (seen at [facility] within 3 years) Reason for Visit:: Seen by Clinical Staff ONLY (RN/MA): No [place] Required: No Do You Feel Safe at Home: Yes Authorities Contacted: N/A PCP or OBGYN visit in last 3 months: Yes Hx Now: No Are you currently on any form of Control: No Pain Present Currently: No Pain Scale Used: Teran-Balderrama/Numerical Pain scale:: 0 Smoking Status Smoking Status: Never smoker TEACHERS AIDE: Past Medical History Additional Operations/Hospitalizations (year & reason): Past surgical history includes in [place]. Other Relevant History: No significant past medical history including no asthma diabetes no predelivery hypertension. Questionnaires Covid-19 Vaccine Questionnaire Has patient been vacinated for Covid-19 Have you been vacinated for Covid-19: Yes Social History Living Situation History Marital Status: Single Lives With: Family Housing: House Tobacco History Smoking Status: Never smoker Second Hand Smoke Exposure: No Alcohol History Alcohol Intake: Never Domestic Abuse History Do You Feel Safe at Home: Yes EPDS - PP Depression Screening [place] Pospartum Depression Screen I have been able to laugh and see the funny side of things: (0) As much as I always could I have looked forward with enjoyment to things: (0) As much as I ever did I have blamed myself unnecessarily when things went wrong: (0) No, never I have been anxious or worried for no good reason: (0) No, not at all I have felt scared or panicky for no very good reason: (0) No, not at all Things have been getting on top of me: (0) No, I have been coping as well as ever I have been so unhappy that I have had difficulty sleeping: (0) No, not at all I have felt sad or miserable: (0) No, not at all I have been so unhappy that I have been crying: (0) No, never The thought of harming myself has occurred to me: (0) Never Total Score: EPDS Score: Referral is indicated for score of 9 or more, suicidal, or if provider believes patient is depressed regardless of score.: 0 EPDS completed yes Care OB Visit Log OB Flowsheet Initial Weight: Not Recorded Date -?-?-?-?-?-?-?-?-?-?-?-?- EGA Weight BP Alb Glu CTX Pres Fundal ht FHR Mov Dilation Station Effacement Hx Notes Visit Note 05/28/25 -?-?-?-?-?-?-?-?-?-?-?-?- 32w 5d 80.513 kg 106/66 absent 145 - with history of one prior section - Estimated due date: 07/18/2025 - Previous due to prolonged pre gnancy and cord entanglement - Current uncomplicated, heart rate 145 bpm (normal range) Delivery Options: - Discussed vaginal after () vs. repeat section - Informed patient our hospital does not allow - Advised to request referral for a [facility] or [facility] if desired 06/12/25 -?-?-?-?-?-?-?-?-?-?-?-?- 34w 6d 81.873 kg 110/72 occasional 152 at 35 weeks gestation presenting for routine visit. Patient reports feeling pressure, which is noted as normal. heart rate is 152 bpm, which is within normal limits. Group B Streptococcus (GBS) screening swab was performed. Patient has a history of difficulty with anesthesia during previous section, reporting higher than expected sensation. Planned section for July 01, one week prior to the July 08 due date. Plan - Group B Streptococcus (GBS) culture sw ab performed - Follow-up appointment scheduled for ne xt week - tentatively scheduled for Se pt, awaiting confirmation - Patient advised to mention previous an esthesia difficulties to anesthesiologist for appropriate management during upcoming 06/19/25 -?-?-?-?-?-?-?-?-?-?-?-?- 35w 6d 82.214 kg 107/71 occasional 155 Patient is a 35-week and 6-day woman presenting for visit. Group B Streptococcus (GBS) screening was negative at the last appointment. A repeat section is scheduled for July 01. heart rate was noted to be 155 bpm, which is within normal range. Patient reports numbness in her first two toes following steroid administration, likely a temporary side effect. She also experienced drowsiness after receiving spinal anesthesia during a previous procedure. Cervix was closed on recent examination, indicating no signs of labor at this time. Plan - Scheduled repeat on - Return for final appointment next week - Patient to meet with anesthesia doctor 2 hours before operation to discuss concerns about previous anesthesia experience - If contractions last more than an hour , patient should come to the hospital - If cervix starts opening, delivery may occur before scheduled date 06/26/25 -?-?-?-?-?-?-?-?-?-?-?-?- 36w 6d 83.234 kg 113/71 occasional 37 145 +FM No L OF, No VB Scheduled CS 07/04 unknown scar in [place] PILI Calculator Estimated Delivery Date Method Current WG Current Estimate 07/18/25 LMP (Certain) 40w 0d Other Estimates 07/18/25 Ultrasound #1 40w 0d Expected Delivery Route/Plan 24 y/o Previous CS in [place] no Op report 3 years ago for distress Transfer of care Dr Celestin 27 weeks Specific Issue/Plans PNC labs under [facility] 06/15: PNC Documentation from office: B+/Ab negative/RI/RPR NR/HepBSag-/HIV-/CG-/Chlam-/ AFP-/CF testing- Notes Visit Date: 06/26/25 Last Updated by: Pat Bledsoe (OB Clinic)MD Pt is a Amharic-Speaking pt who presents with her and 3 year old for a return OB visit. She started care with Dr Celestin. She had a CS in [place], unknown scar for distress. The interview and exam is conducted with my medical dosimetrist, Maya maynard. HPI Was or delivery considered high risk: No Delivery type: Was labor induced: no Gestational age at delivery (weeks): 39 Delivery date: 07/04/25 Delivering provider: Dr. Renata Bledsoe Delivery complications: No Is patient : Yes Is patient sexually active: No Contraception planned: Patient is unsure. Possibly condoms. Exam Narrative Physical exam: Fundus firm abdomen soft incision clean dry and intact Dermabond dressing removed today without incident. General Limitations: no limitations General Appearance: alert, in no apparent distress, comfortable, cooperative, healthy appearing and other (Appears a little tired.) Office Procedures OBC Clinic LOC & Office Proc's Nursing/Assessment Patient Status: Established Patient OB Clinic Nursing Assessment: Medication Reconciliation, Update PMH in EMR and Vital Signs OB Clinic Coordination of Care: Education Complex Pt/Fam, Consent,records obtained, informed consent, Lab and Imaging orders, Results/Orders obtained and Staff clarify orders Established Patient Charge Established Patient Point Assignment: 85 Established Patient Point Charge: EP Level 3 (80-115) Assessment & Plan Care Reviewed delivery summary and any complications: Yes Perineal / incision healing noted: Yes Screened for depression: Yes Depression counseling provided: No Discussed family planning & contraception: Yes Contraception planned: Patient is unsure. Possibly condoms. Counseling on safe resumption of sexual activity: No Counseling on gradual excercise: Yes Discussed and concerns (describe), provided support: Yes Referred to resource protection specialist: No Counseled on good nutrition, hydration, and self care: Yes Reviewed vaccine status: No Chronic & current problems reconciled on problem list: Yes Additional follow up plans: Follow-up for blood pressure check in 2 days. Follow up: BP check
== END 2025-07-18 11:59 | disposition home or self-care (01) ==
LOC: HODSOBC 11:26
PROVIDERS: PCP Physician Assistant; Referring Provider Physician Assistant; Supervising Provider Obstetrics & Gynecology; Visit Provider Obstetrics & Gynecology
DX: Z39.2 Encounter for routine postpartum follow-up (principal); Z39.1 Encounter for care and examination of lactating mother
CPT/HCPCS: 99213; G0463

== ENCOUNTER → 2025-08-01 14:34 | Outpatient (AMB) | payer MEDICAID, SELFPAY ==
[2025-08-01 14:46] VITALS: BP 106/68; PULSE 69; RESP 17; TEMP 36.3; O2SAT 97; BMI 27.8
--- NOTE | 2025-08-01 14:46 | AMB.OBPP ---
Vital Signs 08/01/25 14:46 Height 1.65 m Height Method Stated Weight 75.807 kg Weight Measurement Method Standing Scale BMI 27.8 BP 106/68 Blood Pressure Source Automatic Cuff Blood Pressure Location Right Upper Arm Position Sitting Respiration 17 Pulse 69 Pulse Source Monitor Temp 97.4 F Temp Source Temporal Artery Scan Pulse Oximetry (%) 97 Oxygen Delivery Method Room Air Allergies/Home Meds Allergies & Medications Allergies No Known Allergies Allergy (Verified 08/01/25 14:47) Medication Reconciliation vit no.95-ferrous fumarate 28 mg-folic acid 800 mcg tablet ( Multivitamins) 1 tab PO QDAY 06/16/25 [History Confirmed 08/01/25] Intake Visit Data Collection New Patient or Established: Established Patient (seen at [facility] within 3 years) Reason for Visit:: Seen by Clinical Staff ONLY (RN/MA): No Senior Managing Director Required: Yes Senior Managing Director's name/title: MARK MICHELLE MA Do You Feel Safe at Home: Yes Authorities Contacted: N/A PCP or OBGYN visit in last 3 months: Yes Date of Last PCP or OBGYN visit: 07/18/25 Hx Now: No Are you currently on any form of Control: No Pain Present Currently: No Pain Scale Used: Teran-Balderrama/Numerical Pain scale:: 0 Smoking Status Smoking Status: Never smoker PARTS PULLER: Past Medical History Past Medical History: No Hx Neurological Disorders, No Hx Cardiac Disorders, No Hx Cancer, No Hx Blood Disorders, No Hx Gastrointestinal Disorders, No Hx Renal Disease, No Hx Diabetes Mellitus Type 1 and No Hx Diabetes Mellitus Type 2 Questionnaires Covid-19 Vaccine Questionnaire Has patient been vacinated for Covid-19 Have you been vacinated for Covid-19: Yes Social History Living Situation History Marital Status: Lives With: Family Housing: House Tobacco History Smoking Status: Never smoker Second Hand Smoke Exposure: No Alcohol History Alcohol Intake: Never Domestic Abuse History Do You Feel Safe at Home: Yes Care OB Visit Log OB Flowsheet Initial Weight: Not Recorded Date <del>?</del> EGA Weight BP Alb Glu CTX Pres Fundal ht FHR Mov Dilation Station Effacement Hx Notes Visit Note 05/28/25 <del>?</del> 32w 5d 80.513 kg 106/66 absent 145 - with history of one prior section - Estimated due date: 07/18/2025 - Previous due to prolonged and cord entanglement - Current uncomplicated, heart rate 145 bpm (normal range) Delivery Options: - Discussed vaginal after () vs. repeat section - Informed patient our hospital does not allow - Advised to request referral for at [facility] or [facility] if desired 06/12/25 <del>?</del> 34w 6d 81.873 kg 110/72 occasional 152 at 35 weeks gestation presenting for routine visit. Patient reports feeling pressure, which is noted as normal. heart rate is 152 bpm, which is within normal limits. Group B Streptococcus (GBS) screening swab was performed. Patient has a history of difficulty with anesthesia during previous section, reporting higher than expected sensation. Planned section for July 01, one week prior to the July 08 due date. Plan - Group B Streptococcus (GBS) culture swab performed - Follow-up appointment scheduled for next week - tentatively scheduled for July 01, awaiting confirmation - Patient advised to mention previous anesthesia difficulties to anesthesiologist for appropriate management during upcoming 06/19/25 <del>?</del> 35w 6d 82.214 kg 107/71 occasional 155 Patient is a 35-week and 6-day woman presenting for visit. Group B Streptococcus (GBS) screening was negative at the last appointment. A repeat section is scheduled for July 01. heart rate was noted to be 155 bpm, which is within normal range. Patient reports numbness in her first two toes following steroid administration, likely a temporary side effect. She also experienced drowsiness after receiving spinal anesthesia during a previous procedure. Cervix was closed on recent examination, indicating no signs of labor at this time. Plan - Scheduled repeat on July 01 - Return for final appointment next week - Patient to meet with anesthesia doctor 2 hours before operation to discuss concerns about previous anesthesia experience - If contractions last more than an hour, patient should come to the hospital - If cervix starts opening, delivery may occur before scheduled date 06/26/25 <del>?</del> 36w 6d 83.234 kg 113/71 occasional 37 145 +FM No LOF, No VB Scheduled CS 07/04 unknown scar in [place] PILI Calculator Estimated Delivery Date Method Current WG Current Estimate 07/18/25 LMP (Certain) 43w 1d Other Estimates 07/18/25 Ultrasound #1 43w 1d Expected Delivery Route/Plan 24 y/o Previous CS in [place] no Op report 3 years ago for distress Transfer of care Dr Celestin 27 weeks Specific Issue/Plans PNC labs under [facility] 06/15: PNC Documentation from office: B+/Ab negative/RI/RPR NR/HepBSag-/HIV-/CG-/Chlam-/ AFP-/CF testing- Notes Visit Date: 06/26/25 Last Updated by: Pat Bledsoe (OB Clinic)MD Pt is a Colombian-Speaking pt who presents with her and 3 year old for a return OB visit. She started care with Dr Celestin. She had a CS in [place], unknown scar for distress. The interview and exam is conducted with my medical staffing coordinator, Mark present. HPI Interval History: The patient is a 25 y/o s/p repeat CS by Dr Bledsoe on 07/04/25. She was seen at about 12 days post op and her incision looked good. Her BP was elevated that day. She returns for a wound and BP check. She is trinidadian speaking only and my medical staffing coordinator, Mark is translating. Was or delivery considered high risk: No Delivery type: Was labor induced: no Gestational age at delivery (weeks): 39 Delivery date: 07/04/25 Delivering provider: Dr Renata Bledsoe Delivery complications: No Is patient infant: Yes Is patient sexually active: No Contraception planned: condoms Exam Narrative Physical exam: Incision C/D/I/ Fundus firm, 8 weeks size General Limitations: no limitations General Appearance: alert, in no apparent distress, comfortable, cooperative, healthy appearing and well groomed Chest Chest inspection: Present normal inspection and symmetric chest wall rise Resp Respiratory exam: Present normal lung sounds bilaterally Card Cardiovascular exam: Present regular rate, normal rhythm and normal heart sounds Abdominal Abdominal exam: Present soft and normal bowel sounds Extremities Extremities exam: Present normal inspection and full ROM Psych Psychiatric exam: Present normal affect and normal mood Skin Skin exam: Present warm, dry, intact and normal color Office Procedures OBC Clinic LOC & Office Proc's Nursing/Assessment Patient Status: Established Patient OB Clinic Nursing Assessment: Medication Reconciliation, Update PMH in EMR and Vital Signs OB Clinic Coordination of Care: Complex Care and Chronic Disease 1-5, Education Complex Pt/Fam, Consent,records obtained, informed consent and Staff clarify orders Established Patient Charge Established Patient Point Assignment: 90 Established Patient Point Charge: EP Level 3 (80-115) Antepartum Initial or Follow-up Antepartum Follow up Visit: Yes Assessment & Plan Care Reviewed delivery summary and any complications: Yes Uterus involuted to: 8 week size Perineal / incision healing noted: Yes Screened for depression: Yes Depression counseling provided: No Discussed family planning & contraception: Yes Contraception planned: condoms Counseling on safe resumption of sexual activity: Yes Counseling on gradual excercise: Yes Discussed and concerns (describe), provided support: Yes Referred to registration scheduling specialist: No Counseled on good nutrition, hydration, and self care: Yes Reviewed vaccine status: No Chronic & current problems reconciled on problem list: Yes Infant care discussed; questions answered: feeding and sleep Follow up: routine/prn
== END ==
PROVIDERS: Supervising Provider Advanced Practice Midwife; Visit Provider Advanced Practice Midwife
DX: Z39.2 Encounter for routine postpartum follow-up (principal); Z39.1 Encounter for care and examination of lactating mother
CPT/HCPCS: 99213; Z1034; G0463

== ENCOUNTER 2025-08-10 13:32 | Outpatient (AMB) | payer MEDICAID, SELFPAY ==
[2025-08-10 13:36] VITALS: BP 109/65; PULSE 74; RESP 18; TEMP 36.2; O2SAT 98; BMI 26.9
--- NOTE | 2025-08-10 13:36 | AMBOBPPN_ITS ---
Vital Signs 08/10/25 13:36 Height 1.65 m Height Method Stated Weight 73.198 kg Weight Measurement Method Standing Scale BMI 26.9 BP 109/65 Blood Pressure Source Automatic Cuff Blood Pressure Location Left Upper Arm Position Sitting Respiration 18 Pulse 74 Pulse Source Monitor Temp 97.2 F Temp Source Oral Pulse Oximetry (%) 98 Oxygen Delivery Method Room Air Allergies/Home Meds Allergies & Medications Allergies No Known Allergies Allergy (Verified 08/10/25 13:37) Medication Reconciliation vit no.95-ferrous fumarate 28 mg-folic acid 800 mcg tablet ( Multivitamins) 1 tab PO QDAY 06/16/25 [History Confirmed 08/10/25] Intake Visit Data Collection New Patient or Established: Established Patient (seen at [facility] within 3 years) Reason for Visit:: PP Seen by Clinical Staff ONLY (RN/MA): No Credit Analysis Manager Required: No Do You Feel Safe at Home: Yes Authorities Contacted: N/A PCP or OBGYN visit in last 3 months: Yes Date of Last PCP or OBGYN visit: 08/01/25 Hx Now: No Are you currently on any form of Control: No Pain Present Currently: No Pain Scale Used: Teran-Balderrama/Numerical Pain scale:: 0 Smoking Status Smoking Status: 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 No chronic medical problems. Questionnaires Covid-19 Vaccine Questionnaire Has patient been vacinated for Covid-19 Have you been vacinated for Covid-19: Yes Social History Living Situation History Lives With: Family Housing: House Tobacco History Smoking Status: Never smoker Second Hand Smoke Exposure: No Alcohol History Alcohol Intake: Never Domestic Abuse History Do You Feel Safe at Home: Yes EPDS - PP Depression Screening Esmond Pospartum Depression Screen I have been able to laugh and see the funny side of things: (0) As much as I always could I have looked forward with enjoyment to things: (0) As much as I ever did I have blamed myself unnecessarily when things went wrong: (0) No, never I have been anxious or worried for no good reason: (0) No, not at all I have felt scared or panicky for no very good reason: (0) No, not at all Things have been getting on top of me: (0) No, I have been coping as well as ever I have been so unhappy that I have had difficulty sleeping: (0) No, not at all I have felt sad or miserable: (0) No, not at all I have been so unhappy that I have been crying: (0) No, never The thought of harming myself has occurred to me: (0) Never Total Score: EPDS Score: Referral is indicated for score of 9 or more, suicidal, or if provider believes patient is depressed regardless of score.: 0 EPDS completed yes Care OB Visit Log OB Flowsheet Initial Weight: Not Recorded Date -?-?-?-?-?-?-?-?-?-?-?-?- EGA Weight BP Alb Glu CTX Pres Fundal ht FHR Mov Dilation Station Effacement Hx Notes Visit Note 05/28/25 -?-?-?-?-?-?-?-?-?-?-?-?- 32w 5d 80.513 kg 106/66 absent 145 - with history of one prior section - Estimated due date: 07/18/2025 - Previous due to prolonged pre gnancy and cord entanglement - Current uncomplicated, heart rate 145 bpm (normal range) Delivery Options: - Discussed vaginal after () vs. repeat section - Informed patient our hospital does not allow - Advised to request referral for a [facility] or [facility] if desired 06/12/25 -?-?-?-?-?-?-?-?-?-?-?-?- 34w 6d 81.873 kg 110/72 occasional 152 at 35 weeks gestation presenting for routine visit. Patient reports feeling pressure, which is noted as normal. heart rate is 152 bpm, which is within normal limits. Group B Streptococcus (GBS) screening swab was performed. Patient has a history of difficulty with anesthesia during previous section, reporting higher than expected sensation. Planned section for July 01, one week prior to the July 08 due date. Plan - Group B Streptococcus (GBS) culture sw ab performed - Follow-up appointment scheduled for ne xt week - tentatively scheduled for Se , awaiting confirmation - Patient advised to mention previous an esthesia difficulties to anesthesiologist for appropriate management during upcoming 06/19/25 -?-?-?-?-?-?-?-?-?-?-?-?- 35w 6d 82.214 kg 107/71 occasional 155 Patient is a 35-week and 6-day woman presenting for visit. Group B Streptococcus (GBS) screening was negative at the last appointment. A repeat section is scheduled for July 01. heart rate was noted to be 155 bpm, which is within normal range. Patient reports numbness in her first two toes following steroid administration, likely a temporary side effect. She also experienced drowsiness after receiving spinal anesthesia during a previous procedure. Cervix was closed on recent examination, indicating no signs of labor at this time. Plan - Scheduled repeat on - Return for final appointment next week - Patient to meet with anesthesia doctor 2 hours before operation to discuss con cerns about previous anesthesia experience - If contractions last more than an hour , patient should come to the hospital - If cervix starts opening, delivery may occur before scheduled date 06/26/25 -?-?-?-?-?-?-?-?-?-?-?-?- 36w 6d 83.234 kg 113/71 occasional 37 145 +FM No L OF, No VB Scheduled CS 07/04 unknown scar in [place] PILI Calculator Estimated Delivery Date Method Current WG Current Estimate 07/18/25 LMP (Certain) 45w 0d Other Estimates 07/18/25 Ultrasound #1 45w 0d Expected Delivery Route/Plan 24 y/o Previous CS in [place] no Op report 3 years ago for distress Transfer of care Dr Celestin 27 weeks Specific Issue/Plans PNC labs under [facility] 06/15: PNC Documentation from office: B+/Ab negative/RI/RPR NR/HepBSag-/HIV-/CG-/Chlam-/ AFP-/CF testing- Notes Visit Date: 06/26/25 Last Updated by: Pat Bledsoe (OB Clinic)MD Pt is a Russian-Speaking pt who presents with her and 3 year old for a return OB visit. She started care with Dr Celestin. She had a CS in [place], unknown scar for distress. The interview and exam is conducted with my medical voucher clerk, Maya maynard. HPI Interval History: The patient is a 25-year-old G3 now P2012 status post scheduled elective repeat section 07/04/2025 for a history of x 1. This was performed at 38 weeks as she had unknown scar. Her first section was performed in [place]. The patient had an uncomplicated section and went home postoperative day #2 in stable condition. Was or delivery considered high risk: No Delivery type: Was labor induced: no Gestational age at delivery (weeks): 38 Delivery date: 07/04/25 Delivering provider: Dr Renata Bledsoe Delivery complications: No Is patient infant: No Is patient sexually active: No Contraception planned: Condoms Review of Systems Review of Systems Narrative Review of Systems: No heavy bleeding. No pain. No depression. Exam Narrative Physical exam: Incision clean dry and intact. Fundus involuted to 6 weeks size. General Limitations: no limitations General Appearance: alert, in no apparent distress, cooperative, healthy appearing and well groomed Chest Chest inspection: Present normal inspection and symmetric chest wall rise Resp Respiratory exam: Present normal lung sounds bilaterally Card Cardiovascular exam: Present regular rate, normal rhythm and normal heart sounds Abdominal Abdominal exam: Present soft and normal bowel sounds Extremities Extremities exam: Present normal inspection and full ROM Psych Psychiatric exam: Present normal affect and normal mood Skin Skin exam: Present warm, dry, intact and normal color Office Procedures [facility] Clinic LOC & Office Proc's Nursing/Assessment Patient Status: Established Patient OB Clinic Nursing Assessment: Medication Reconciliation, Update PMH in EMR and Vital Signs OB Clinic Coordination of Care: Consent,records obtained, informed consent, Education Simp Pt/Fam, Lab and Imaging orders, Results/Orders obtained and Staff clarify orders Established Patient Charge Established Patient Point Assignment: 80 Established Patient Point Charge: EP Level 3 (80-115) Assessment & Plan Diagnosis / Problem List (1) delivery delivered: Status: Acute Plan: Patient is almost 6 weeks post op. She can go back to all normal activities at 6 weeks including intercourse, swimming, tampons, exercise. She will use condoms for contraception. She will follow-up yearly for an annual exam. She will call if she wants another form of contraception. The entire interview and physical exam is conducted with a Russian speaking medical voucher clerk present. Care Reviewed delivery summary and any complications: Yes Uterus involuted to: 6 weeks size Perineal / incision healing noted: Yes Screened for depression: Yes Depression counseling provided: No Discussed family planning & contraception: Yes Contraception planned: Condoms Counseling on safe resumption of sexual activity: Yes Counseling on gradual excercise: Yes Discussed and concerns (describe), provided support: No Referred to cardiovascular specialist: No Counseled on good nutrition, hydration, and self care: Yes Reviewed vaccine status: No Chronic & current problems reconciled on problem list: Yes Additional follow up plans: Follow-up in 1 year for an annual exam care discussed; questions answered: feeding and sleep Follow up: routine/prn
== END 2025-08-10 14:26 | disposition home or self-care (01) ==
LOC: HODSOBC 13:32
PROVIDERS: Supervising Provider Obstetrics & Gynecology; Visit Provider Obstetrics & Gynecology
DX: Z39.2 Encounter for routine postpartum follow-up (principal)
CPT/HCPCS: 99213; G0463